=== PATIENT | female | born 1995 | race Caucasian/White ===

== ENCOUNTER → 2021-11-04 09:46 | Outpatient (CLI) | payer OTHER, SELFPAY ==
[2021-11-04 11:08] LABS: Vitamin D 25 Hydroxy (D3) 33.5 ng/mL (30.0-100.0)
== END ==
PROVIDERS: Family Provider Pediatrics; PCP Family Medicine; Referring Provider Family Medicine; Visit Provider Family Medicine
DX: E55.9 Vitamin D deficiency, unspecified (principal)
CPT/HCPCS: 36415; 82306